=== PATIENT | female | born 1995 | race Caucasian/White ===

== ENCOUNTER 2017-08-18 11:16 | Emergency (ER) | payer MEDICAID ==
[~2017-08-18] VITALS: Ht 165.1 cm; Wt 75.9 kg
[2017-08-18 11:30] VITALS: BP 130/68
--- NOTE | 2017-08-18 11:40 | NUR ---
Patient to bed 11.
--- NOTE | 2017-08-18 11:50 | NUR ---
21F BIB SIGNIFICANT OTHER WITH C/O VAGINAL BLEED SINCE LAST NIGHT, PINK NO CLOTS, CHANGING A PAD PER 3-4HOURS; PT REPORTS 6 WEEKS , A0; LMP 07/04/17; PT DENIES ANY PAIN OR N/V AT THIS TIME; PT IS AOX4, RR ARE EVEN AND UNLABORED; ER MD AWARE OF PT STATUS; NAD. WILL CONTINUE TO MONITOR.
--- NOTE | 2017-08-18 11:55 | NUR ---
US BY BEDSIDE
[2017-08-18 12:00] LABS: BASOPHILS # (AUTO) 0.3 K/uL (0.00-0.22); BASOPHILS % (AUTO) 3.7 % (0.0-2.0); EOSINOPHILS # (AUTO) 0.1 K/uL (0-0.4); EOSINOPHILS % (AUTO) 1.2 % (0.0-4.0); HEMATOCRIT 38.4 % (36-48); HEMOGLOBIN 12.6 g/dL (12.0-16.0); LYMPHOCYTES # (AUTO) 0.9 K/uL (2.5-16.5); LYMPHOCYTES % (AUTO) 12.5 % (20.5-51.1); MEAN CORPUSCULAR HEMOGLOBIN 28 pg (27-31); MEAN CORPUSCULAR HGB CONC 33 g/dL (33-37); MEAN CORPUSCULAR VOLUME 85 fL (80-94); MONOCYTES # (AUTO) 0.2 K/uL (0.8-1.0); MONOCYTES % (AUTO) 2.7 % (1.7-9.3); NEUTROPHILS # (AUTO) 6.1 K/uL (1.8-7.7); NEUTROPHILS % (AUTO) 79.9 % (42.2-75.2); PLATELET COUNT (AUTO) 232 K/uL (140-450); RED BLOOD CELL COUNT(AUTO) 4.51 MIL/uL (4.20-5.40); RED CELL DISTRIBUTION WIDTH 11.7 % (11.6-13.7); WHITE BLOOD COUNT (AUTO) 7.6 K/uL (4.8-10.8)
[2017-08-18 12:01] LABS: BILIRUBIN,URINE NEGATIVE (NEGATIVE); COLOR,URINE YELLOW (YELLOW); LEUKOCYTE ESTERASE ,URINE NEGATIVE (NEGATIVE); NITRITE, URINE NEGATIVE (NEGATIVE); PH,URINE 6.5 (5.0-9.0); UGLUCOSE NEGATIVE (NEGATIVE)
[2017-08-18 12:11] LABS: APPEARANCE,URINE CLEAR (CLEAR); BLOOD, URINE TRACE (NEGATIVE)
[2017-08-18 12:12] LABS: RBC,URINE 0-5 (RARE) /HPF (0-5); WBC,URINE 0-5 (RARE) /HPF (0-5)
[2017-08-18 13:09] VITALS: BP 132/66
--- NOTE | 2017-08-18 13:10 | NUR ---
Patient discharged with v/s stable. Written and verbal after care instructions given and explained. Patient verbalized understanding. Ambulatory with to car. All questions addressed prior to discharge. Advised to follow up with PMD. COPIES OF US AND LABS SENT W/PT.
== END 2017-08-18 13:10 | disposition home or self-care (01) ==
LOC: MED 11:16
DX: O20.0 Threatened abortion (principal); Z3A.01 Less than 8 weeks gestation of pregnancy; J45.909 Unspecified asthma, uncomplicated
CPT/HCPCS: 36415; 76801; 81001; 81025; 84702; 85025; 86900; 86901; 99285; Q0092

== ENCOUNTER 2019-09-18 20:44 | Emergency (ER) | payer MEDICAID ==
[~2019-09-18] VITALS: Ht 165.1 cm; Wt 76.8 kg
[2019-09-18 20:50] VITALS: BP 143/73
--- NOTE | 2019-09-18 20:50 | NUR ---
23 Y/O FEMALE C/O RT FLANK PAIN AND LOWER RIGHT BACK PAIN. N/V STARTED 2 HOURS AGO. BOWEL SOUNDS HEARD ON ALL FOUR QUADRANTS.TENDERNESS UPON PALPATION IN THE RIGHT LOWER BACK. 9/10 PAIN; NONRADIATING. PATIENT IS 3 WEEKS. DENIES FEVER; + CHILLS. HCG NEGATIVE. ERMD MADE AWARE OF STATUS. SIDE RAILSX1. MOTHER AT BEDSIDE. WILL CONTINUE TO MONITOR. PMH: ASTHMA RX: ALLERGIES: GRASS
--- NOTE | 2019-09-18 20:50 | NUR ---
PT AMBULATED TO BED 04.
[2019-09-18] MEDS ORDERED: ONDANSETRON 4 MG/2 ML VIAL IVP ONE (21:15)
[2019-09-18] MEDS ORDERED: NACL 0.9% 1,000 ML IV ONE (21:15)
[2019-09-18] MEDS ORDERED: KETOROLAC 30 MG/ML VIAL IVP ONE (21:15)
--- NOTE | 2019-09-18 21:35 | NUR ---
IV PLACED 22 GAUGE IN RIGHT FOREARM; NORMAL SALINE RUNNING. WILL CONTINUE TO MONITOR.
--- NOTE | 2019-09-18 22:10 | NUR ---
PAIN IS NOW AT A 6/10. WILL CONTINUE TO MONITOR.
--- NOTE | 2019-09-18 22:22 | NUR ---
PATIENT TAKEN TO CT.
[2019-09-18 22:45] LABS: EOSINOPHILS # (AUTO) 0.1 K/uL (0-0.4); EOSINOPHILS % (AUTO) 0.5 % (0.0-4.0); HEMOGLOBIN 11.8 g/dL (12.0-16.0); LYMPHOCYTES # (AUTO) 1.1 K/uL (2.5-16.5); LYMPHOCYTES % (AUTO) 8.6 % (20.5-51.1); MONOCYTES # (AUTO) 0.6 K/uL (0.8-1.0)
--- NOTE | 2019-09-18 22:56 | NUR ---
PAIN IS AN 8/10 AT THIS TIME. ERMD MADE AWARE. WILL CONTINUE TO MONITOR.
[2019-09-18 22:59] LABS: BASOPHILS % (AUTO) 0.4 % (0.0-2.0); HEMATOCRIT 37.2 % (36-48); MEAN CORPUSCULAR HEMOGLOBIN 27 pg (27-31); MEAN CORPUSCULAR HGB CONC 32 g/dL (33-37); MEAN CORPUSCULAR VOLUME 84.2 fL (80-94); MONOCYTES % (AUTO) 5.2 % (1.7-9.3); NEUTROPHILS # (AUTO) 10.6 K/uL (1.8-7.7); NEUTROPHILS % (AUTO) 85.3 % (42.2-75.2); PLATELET COUNT (AUTO) 262 K/uL (140-450); RED BLOOD CELL COUNT(AUTO) 4.42 MIL/uL (4.20-5.40); WHITE BLOOD COUNT (AUTO) 12.4 K/uL (4.8-10.8)
[2019-09-18] MEDS ORDERED: MORPHINE SULFATE 2 MG/ML SYR IVP ONE (23:00)
[2019-09-18 23:08] LABS: ALBUMIN 3.5 g/dL (3.4-5.0); ANION GAP 16.2 (8-16); CARBON DIOXIDE 23.3 mmol/L (21-32); CREATININE 0.6 mg/dL (0.6-1.3); POTASSIUM 3.5 mmol/L (3.5-5.1); TOTAL BILIRUBIN 0.4 mg/dL (0.0-1.0)
[2019-09-18 23:16] LABS: APPEARANCE,URINE CLOUDY (CLEAR); BILIRUBIN,URINE NEGATIVE (NEGATIVE); BLOOD, URINE TRACE-I (NEGATIVE); COLOR,URINE YELLOW (YELLOW); LEUKOCYTE ESTERASE ,URINE NEGATIVE (NEGATIVE); NITRITE, URINE NEGATIVE (NEGATIVE); UGLUCOSE NEGATIVE (NEGATIVE)
[2019-09-18 23:37] LABS: RBC,URINE 0-5 /HPF (0-5); URINE AMORPHOUS URATE 4+ /HPF (None Seen); WBC,URINE 0-5 /HPF (0-5)
[2019-09-18] MEDS ORDERED: LACTULOSE 20 GM/30 ML UDC PO ONE (23:40)
[2019-09-18 23:52] VITALS: BP 130/70
== END 2019-09-18 23:52 | disposition home or self-care (01) ==
LOC: MED 20:44
DX: O90.89 Other complications of the puerperium, not elsewhere classified (principal); R10.9 Unspecified abdominal pain; K59.00 Constipation, unspecified; R11.10 Vomiting, unspecified; O99.53 Diseases of the respiratory system complicating the puerperium; J45.909 Unspecified asthma, uncomplicated; Z91.09 Other allergy status, other than to drugs and biological substances
CPT/HCPCS: 36415; 74176; 80053; 81001; 81025; 83690; 85025; 96361; 96374; 96375; 99284; J1885; J2270; J2405; J7030

== ENCOUNTER 2019-09-24 22:52 | Emergency (ER) | payer MEDICAID ==
[~2019-09-24] VITALS: Ht 160 cm; Wt 76.2 kg
[2019-09-24 22:58] VITALS: BP 120/50
--- NOTE | 2019-09-24 23:04 | NUR ---
PT AMBULATED TO BED 12 WITH STEADY GAIT
--- NOTE | 2019-09-24 23:12 | NUR ---
23 Y/O FEMALE C/O ABD PAIN, NAUSEA AND VOMITING. PT STATES SHE WAS SEEN 09/18 FOR CONSTIPATION. HOWEVER, PAIN IS NOW A 10/10, ACUTE PAIN STARTING IN THE BACK RADIATING TO THE ABDOMEN. ABDOMEN SOFT AND ROUND. STRIAE NOTED ALL THROUGHOUT ABDOMEN. ABDOMINAL SOUNDS HEARD ON ALL FOUR QUADRANTS. ERMD MADE AWARE OF STATUS. MEDHX:ASTHMA RX:PRENATALS NKDA
[2019-09-24] MEDS ORDERED: NACL 0.9% 1,000 ML IV ONE (23:17)
[2019-09-24] MEDS ORDERED: ONDANSETRON 4 MG/2 ML VIAL IVP ONE (23:20)
[2019-09-24] MEDS ORDERED: MORPHINE SULFATE 4 MG/ML SYR IVP ONE (23:20)
--- NOTE | 2019-09-25 00:25 | NUR ---
PATIENT BACK FROM CT.
[2019-09-25 00:43] LABS: BASOPHILS % (AUTO) 0.4 % (0.0-2.0); EOSINOPHILS % (AUTO) 0.4 % (0.0-4.0); HEMATOCRIT 35.2 % (36-48); HEMOGLOBIN 11.2 g/dL (12.0-16.0); LYMPHOCYTES # (AUTO) 0.8 K/uL (2.5-16.5); LYMPHOCYTES % (AUTO) 9.3 % (20.5-51.1); MEAN CORPUSCULAR HEMOGLOBIN 27 pg (27-31); MEAN CORPUSCULAR HGB CONC 32 g/dL (33-37); MEAN CORPUSCULAR VOLUME 84.2 fL (80-94); MONOCYTES # (AUTO) 0.7 K/uL (0.8-1.0); MONOCYTES % (AUTO) 7.4 % (1.7-9.3); NEUTROPHILS # (AUTO) 7.3 K/uL (1.8-7.7); NEUTROPHILS % (AUTO) 82.5 % (42.2-75.2); PLATELET COUNT (AUTO) 208 K/uL (140-450); RED BLOOD CELL COUNT(AUTO) 4.18 MIL/uL (4.20-5.40); RED CELL DISTRIBUTION WIDTH 14.2 % (11.6-13.7); WHITE BLOOD COUNT (AUTO) 8.8 K/uL (4.8-10.8)
[2019-09-25 01:02] LABS: ALBUMIN 3.5 g/dL (3.4-5.0); ANION GAP 16.2 (8-16); CARBON DIOXIDE 22.5 mmol/L (21-32); CREATININE 0.6 mg/dL (0.6-1.3); POTASSIUM 3.7 mmol/L (3.5-5.1); TOTAL BILIRUBIN 0.8 mg/dL (0.0-1.0)
--- NOTE | 2019-09-25 01:40 | NUR ---
PATIENT IS SITTING QUIETLY IN BED. 4/10 PAIN AT THIS TIME. WILL CONTINUE TO MONITOR.
[2019-09-25 02:38] LABS: APPEARANCE,URINE SL CLOUDY (CLEAR); BILIRUBIN,URINE NEGATIVE (NEGATIVE); BLOOD, URINE 3+ (NEGATIVE); COLOR,URINE YELLOW (YELLOW); LEUKOCYTE ESTERASE ,URINE TRACE (NEGATIVE); NITRITE, URINE POSITIVE (NEGATIVE); UGLUCOSE NEGATIVE (NEGATIVE)
[2019-09-25 03:09] LABS: RBC,URINE TOO NUMEROUS TO COUN /HPF (0-5)
[2019-09-25 03:35] VITALS: BP 121/69
--- NOTE | 2019-09-25 03:35 | NUR ---
Patient discharged with v/s stable. Written and verbal after care instructions given and explained. Patient alert, oriented and verbalized understanding of instructions. Ambulatory with steady gait. All questions addressed prior to discharge. ID band removed. Patient advised to follow up with PMD. Rx of NAPROSYN; KEFLEX given. Patient educated on indication of medication including possible reaction and side effects. Opportunity to ask questions provided and answered.
== END 2019-09-25 03:35 | disposition home or self-care (01) ==
LOC: MED 22:52
DX: N39.0 Urinary tract infection, site not specified (principal); J45.909 Unspecified asthma, uncomplicated
CPT/HCPCS: 36415; 74176; 80053; 81001; 81025; 83690; 85025; 87086; 96361; 96374; 96375; 99284; J2270; J2405; J7030

== ENCOUNTER 2023-07-25 17:16 | Emergency (ER) | payer SELFPAY ==
[~2023-07-25] VITALS: Ht 165.1 cm; Wt 72.6 kg
[2023-07-25 17:46] VITALS: BP 130/75; PULSE 92; RESP 18; TEMP 98.6; O2SAT 98
[2023-07-25] MEDS ORDERED: ONDANSETRON 4 MG ODT PO ONE (19:15)
== END 2023-07-25 19:30 | disposition left against medical advice (07) ==
LOC: MED 17:16
DX: R11.2 Nausea with vomiting, unspecified (principal); R10.12 Left upper quadrant pain; R50.9 Fever, unspecified; R42 Dizziness and giddiness; J45.909 Unspecified asthma, uncomplicated; Z90.49 Acquired absence of other specified parts of digestive tract
CPT/HCPCS: 99281; Q0162